=== PATIENT | female | born 1965 | race Hispanic/Latino ===

== ENCOUNTER 2022-08-19 16:39 | Inpatient (IN) | payer BC, OTHER ==
[~2022-08-19] VITALS: Ht 165.1 cm; Wt 101.0 kg
[~2022-08-19 16:39] MED LIST: EMPA1TAB3 PO; IBUP1TAB76 PO; MV,I66.7 PO
[2022-08-19 18:27] LABS: BASOPHILS % (AUTO) 0.2 % (0.0-5.0); EOSINOPHILS % (AUTO) 0.2 % (0.0-8.0); HEMATOCRIT 38.8 % (36-48); LYMPHOCYTES % (AUTO) 10.7 % (21.0-51.0); MEAN CORPUSCULAR HEMOGLOBIN 29.6 pg (27.0-33.0); MEAN CORPUSCULAR VOLUME 92.6 fL (79-99); MONOCYTES % (AUTO) 4.6 % (3.0-13.0); NEUTROPHILS % (AUTO) 83.8 % (40.0-77.0); PLATELET COUNT (AUTO) 253 K/uL (130-400); RED BLOOD CELL COUNT(AUTO) 4.19 MIL/uL (4.00-5.50); RED CELL DISTRIBUTION WIDTH 12.7 % (11.0-15.5); WHITE BLOOD COUNT (AUTO) 12.7 K/uL (4.8-10.8)
[2022-08-19 18:45] LABS: CREATININE 1.2 mg/dL (0.5-1.5); POTASSIUM 4.9 mmol/L (3.5-5.1)
[2022-08-19 18:56] LABS: ALBUMIN 3.5 g/dL (3.5-5.0); TOTAL PROTEIN, SERUM 8.4 g/dL (6.0-8.3)
[2022-08-19] MEDS ORDERED: CLINDAMYCIN IVPB 600MG/50ML 50 ML IV STA (19:07)
[2022-08-19] MEDS ORDERED: HYDROCODONE/ACETAMINOPHEN 5/325 MG TAB PO PRN ×2 (20:30)
[2022-08-19] MEDS ORDERED: GLUCAGON 1MG KIT 1 MG ML IM PRN (20:30)
[2022-08-19] MEDS ORDERED: ONDANSETRON 4MG INJ IV PRN (20:30)
[2022-08-19] MEDS ORDERED: DEXTROSE 50%-WATER 50 ML DISP.SYRIN IV PRN (20:30)
[2022-08-19] MEDS ORDERED: NITROGLYCERIN 0.4 MG SL TAB SL PRN (20:30)
[2022-08-19] MEDS ORDERED: ACETAMINOPHEN 325 MG TAB PO PRN ×2 (20:30)
[2022-08-19] MEDS ORDERED: VANCOMYCIN PROTOCOL PER PHARMACY IV PRN (20:30)
[2022-08-19] MEDS: INSULIN HUMULIN R 100 UNIT/ML 3ML SQ SCH (20:54)
[2022-08-19 20:56] LABS: INR 0.93 (0.85-1.15); PROTHROMBIN TIME 9.8 SEC (9.6-11.6)
[2022-08-19 20:57] LABS: PARTIAL THROMBOPLASTIN TIME 26.2 SEC (26.3-35.5)
[2022-08-19] MEDS: FAMOTIDINE 20MG TAB PO SCH (20:57)
[2022-08-19 21:20] VITALS: BP 151/77
[2022-08-19] MEDS ORDERED: PRED-904 PO (21:32)
[2022-08-19] MEDS ORDERED: ATOR20TA65 PO (21:32)
[2022-08-19] MEDS ORDERED: LORA10TA7 PO (21:32)
[2022-08-19] MEDS ORDERED: SEMA1PEN3 SQ (21:32)
[2022-08-19] MEDS ORDERED: AMIT25TA9 PO (21:32)
[2022-08-19] MEDS: VANCOMYCIN 1.75 GM/250 ML BAG 250 ML IV SCH (21:34)
[2022-08-19 22:14] LABS: APPEARANCE,URINE CLEAR (CLEAR); BILIRUBIN,URINE NEGATIVE (NEGATIVE); COLOR,URINE LIGHT-YELLOW (YELLOW); GLUCOSE, URINE (UA) >=1000 mg/dL (NEGATIVE); KETONES,URINE 10 mg/dL (NEGATIVE); LEUKOCYTE ESTERASE ,URINE NEGATIVE Leu/uL (NEGATIVE); NITRATE,URINE NEGATIVE (NEGATIVE); OCCULT BLOOD,URINE NEGATIVE (NEGATIVE); PH,URINE 5.5 (5.0-8.0); PROTEIN,URINE NEGATIVE (NEGATIVE); SQUAMOUS EPITHELIAL CELL,UR RARE /HPF (0-2); UROBILINOGEN,URINE 0.2 mg/dL (0.2-1.0)
[2022-08-19 23:44] VITALS: BP 114/67
[2022-08-20] MEDS: ZOSYN 3.375GM+NS 50ML 50 ML IVPB SCH ×4 (00:27→22:42)
[2022-08-20 04:32] VITALS: BP 122/73
[2022-08-20] MEDS: INSULIN HUMULIN R 100 UNIT/ML 3ML SQ SCH ×4 (06:21→20:46)
[2022-08-20 06:42] LABS: BASOPHILS % (AUTO) 0.5 % (0.0-5.0); EOSINOPHILS % (AUTO) 1.6 % (0.0-8.0); HEMATOCRIT 37.5 % (36-48); LYMPHOCYTES % (AUTO) 22.6 % (21.0-51.0); MEAN CORPUSCULAR HEMOGLOBIN 29.7 pg (27.0-33.0); MEAN CORPUSCULAR HGB CONC 32.3 g/dL (32.0-36.0); MEAN CORPUSCULAR VOLUME 91.9 fL (79-99); MONOCYTES % (AUTO) 7.7 % (3.0-13.0); NEUTROPHILS % (AUTO) 67.1 % (40.0-77.0); PLATELET COUNT (AUTO) 263 K/uL (130-400); RED BLOOD CELL COUNT(AUTO) 4.08 MIL/uL (4.00-5.50); RED CELL DISTRIBUTION WIDTH 12.7 % (11.0-15.5); WHITE BLOOD COUNT (AUTO) 9.9 K/uL (4.8-10.8)
[2022-08-20 06:55] LABS: ALBUMIN 3.1 g/dL (3.5-5.0); CREATININE 1.1 mg/dL (0.5-1.5); MAGNESIUM 1.9 mg/dL (1.80-2.40); POTASSIUM 4.1 mmol/L (3.5-5.1); TOTAL PROTEIN, SERUM 7.5 g/dL (6.0-8.3)
[2022-08-20 08:00] VITALS: BP 125/71
[2022-08-20] MEDS: ENOXAPARIN SODIUM 40 MG/0.4 ML SYRINGE SQ SCH (08:35)
[2022-08-20] MEDS ORDERED: PIOG15TA66 PO (08:46)
[2022-08-20] MEDS ORDERED: PANT40TA54 PO (08:46)
[2022-08-20] MEDS ORDERED: LOSA25TA41 PO (08:46)
[2022-08-20] MEDS ORDERED: CANA300T PO (08:46)
[2022-08-20] MEDS ORDERED: VITA1CAP17 PO (08:46)
[2022-08-20] MEDS ORDERED: CHOL-34 PO (08:46)
[2022-08-20 12:00] VITALS: BP 117/60
[2022-08-20 16:00] VITALS: BP 126/79
[2022-08-20 19:00] VITALS: BP 104/65
[2022-08-20] MEDS: VANCOMYCIN 1.75 GM/250 ML BAG 250 ML IV SCH (20:45)
[2022-08-20] MEDS: FAMOTIDINE 20MG TAB PO SCH (20:45)
[2022-08-20] MEDS ORDERED: DIPH,PERTUSS(ACELL),TET VAC/PF 0.5 ML VIAL IM ONE (21:00)
[2022-08-20 22:45] VITALS: BP 120/95
[2022-08-21] VITALS (21 sets, daily range): BP systolic 96–138; BP diastolic 55–75
[2022-08-21 04:56] LABS: BASOPHILS % (AUTO) 0.6 % (0.0-5.0); EOSINOPHILS % (AUTO) 1.9 % (0.0-8.0); HEMATOCRIT 37.2 % (36-48); LYMPHOCYTES % (AUTO) 23.8 % (21.0-51.0); MEAN CORPUSCULAR HEMOGLOBIN 29.6 pg (27.0-33.0); MEAN CORPUSCULAR HGB CONC 31.7 g/dL (32.0-36.0); MEAN CORPUSCULAR VOLUME 93.2 fL (79-99); MONOCYTES % (AUTO) 8.2 % (3.0-13.0); NEUTROPHILS % (AUTO) 65.1 % (40.0-77.0); PLATELET COUNT (AUTO) 255 K/uL (130-400); RED BLOOD CELL COUNT(AUTO) 3.99 MIL/uL (4.00-5.50); RED CELL DISTRIBUTION WIDTH 12.6 % (11.0-15.5); WHITE BLOOD COUNT (AUTO) 10.4 K/uL (4.8-10.8)
[2022-08-21 05:21] LABS: MAGNESIUM 1.9 mg/dL (1.80-2.40); POTASSIUM 4.3 mmol/L (3.5-5.1); TOTAL PROTEIN, SERUM 7.5 g/dL (6.0-8.3)
[2022-08-21] MEDS: ZOSYN 3.375GM+NS 50ML 50 ML IVPB SCH ×3 (05:31→22:59)
[2022-08-21] MEDS: INSULIN HUMULIN R 100 UNIT/ML 3ML SQ SCH ×4 (06:19→20:18)
[2022-08-21] MEDS: ENOXAPARIN SODIUM 40 MG/0.4 ML SYRINGE SQ SCH (08:35)
[2022-08-21 13:43] LABS: INR 0.93 (0.85-1.15); PROTHROMBIN TIME 10.3 SEC (9.6-11.6)
[2022-08-21 13:44] LABS: PARTIAL THROMBOPLASTIN TIME 27.4 SEC (26.3-35.5)
[2022-08-21] MEDS ORDERED: BUPIVACAINE/PF 0.25% 30ML VIAL IJ ONE ×2 (14:49→15:04)
[2022-08-21] MEDS ORDERED: LIDOCAINE HCL 1% 20 ML VIAL ONE (14:49)
[2022-08-21] MEDS ORDERED: PROPOFOL 1000 MG/100 ML 100 ML IV ONE (14:57)
[2022-08-21] MEDS ORDERED: MIDAZOLAM HCL 1 MG/ML 2ML VIAL ONE (15:03)
[2022-08-21] MEDS ORDERED: LIDOCAINE HCL 1% 20 ML VIAL INJ ONE (15:04)
[2022-08-21] MEDS ORDERED: PHENYLEPHRINE HCL 10 MG/ML 1ML VIAL IV ONE (15:18)
[2022-08-21] MEDS: VANCOMYCIN 1.75 GM/250 ML BAG 250 ML IV SCH (20:33)
[2022-08-21] MEDS: ATORVASTATIN 20 MG TABLET PO SCH (20:33)
[2022-08-21] MEDS: FAMOTIDINE 20MG TAB PO SCH (20:33)
[2022-08-21] MEDS ORDERED: DIPHENHYDRAMINE HCL 25 MG CAPSULE PO ONE (21:00)
[2022-08-21] MEDS ORDERED: PREDNISONE 20 MG TABLET PO ONE (21:00)
[2022-08-22] VITALS (13 sets, daily range): BP systolic 110–139; BP diastolic 49–75
[2022-08-22] MEDS ORDERED: DiphenhydrAMINE HCL 50 MG/ML VIAL IV ONE
[2022-08-22] MEDS ORDERED: SOLU-MEDROL 125MG VIAL IVP ONE
[2022-08-22] MEDS: ZOSYN 3.375GM+NS 50ML 50 ML IVPB SCH ×3 (06:23→21:01)
[2022-08-22] MEDS: VANCOMYCIN 1G/250ML KIT 250 ML IV SCH ×2 (06:23→18:58)
[2022-08-22 06:28] LABS: BASOPHILS % (AUTO) 0.2 % (0.0-5.0); HEMATOCRIT 38.9 % (36-48); LYMPHOCYTES % (AUTO) 6.3 % (21.0-51.0); MEAN CORPUSCULAR HEMOGLOBIN 29.4 pg (27.0-33.0); MEAN CORPUSCULAR HGB CONC 31.6 g/dL (32.0-36.0); MEAN CORPUSCULAR VOLUME 92.8 fL (79-99); MONOCYTES % (AUTO) 0.7 % (3.0-13.0); NEUTROPHILS % (AUTO) 92.3 % (40.0-77.0); PLATELET COUNT (AUTO) 270 K/uL (130-400); RED BLOOD CELL COUNT(AUTO) 4.19 MIL/uL (4.00-5.50); RED CELL DISTRIBUTION WIDTH 12.4 % (11.0-15.5); WHITE BLOOD COUNT (AUTO) 12.1 K/uL (4.8-10.8)
[2022-08-22 06:52] LABS: CREATININE 1.2 mg/dL (0.5-1.5); POTASSIUM 5.2 mmol/L (3.5-5.1); TOTAL PROTEIN, SERUM 7.8 g/dL (6.0-8.3)
[2022-08-22] MEDS: 0.9%NACL 1000ML 1,000 ML IV SCH ×2 (07:00→17:00)
[2022-08-22] MEDS: INSULIN HUMULIN R 100 UNIT/ML 3ML SQ SCH ×4 (07:30→21:51)
[2022-08-22] MEDS: ENOXAPARIN SODIUM 40 MG/0.4 ML SYRINGE SQ SCH (07:58)
[2022-08-22] MEDS ORDERED: MIDAZOLAM HCL 1 MG/ML 2ML VIAL ONE ×2 (11:45→13:31)
[2022-08-22] MEDS ORDERED: FENTANYL CITRATE PF 50 MCG/1 ML 2ML VIAL ONE (11:45)
[2022-08-22] MEDS ORDERED: LIDOCAINE HCL 400MG/20ML VIAL ONE (11:45)
[2022-08-22] MEDS ORDERED: HEPARIN 10,000 UNIT/10ML (1,000 UNIT/ML) VIAL ONE (11:46)
[2022-08-22] MEDS ORDERED: NITROGLYCERIN 50MG VIAL ONE (11:46)
[2022-08-22] MEDS ORDERED: IODIXANOL 320 MG/ML 100 ML VIAL ONE (11:46)
[2022-08-22] MEDS ORDERED: ASPIRIN 325MG EC TAB PO ONE (13:43)
[2022-08-22] MEDS ORDERED: CLOPIDOGREL 300MG TAB ONE (13:43)
[2022-08-22] MEDS ORDERED: 0.9%NACL 1000ML 1,000 ML IV SCH (14:00)
[2022-08-22] MEDS: FAMOTIDINE 20MG TAB PO SCH (21:01)
[2022-08-22] MEDS: ATORVASTATIN 20 MG TABLET PO SCH (21:01)
[2022-08-23] VITALS: BP 121/68
[2022-08-23] MEDS: 0.9%NACL 1000ML 1,000 ML IV SCH (03:00)
[2022-08-23 05:00] VITALS: BP 107/81
[2022-08-23] MEDS: VANCOMYCIN 1G/250ML KIT 250 ML IV SCH (05:52)
[2022-08-23] MEDS: ZOSYN 3.375GM+NS 50ML 50 ML IVPB SCH (05:52)
[2022-08-23 05:53] LABS: BASOPHILS % (AUTO) 0.5 % (0.0-5.0); EOSINOPHILS % (AUTO) 0.3 % (0.0-8.0); HEMATOCRIT 33.9 % (36-48); LYMPHOCYTES % (AUTO) 18.3 % (21.0-51.0); MEAN CORPUSCULAR HEMOGLOBIN 29.9 pg (27.0-33.0); MEAN CORPUSCULAR HGB CONC 31.9 g/dL (32.0-36.0); MEAN CORPUSCULAR VOLUME 93.9 fL (79-99); MONOCYTES % (AUTO) 7.5 % (3.0-13.0); NEUTROPHILS % (AUTO) 72.7 % (40.0-77.0); PLATELET COUNT (AUTO) 242 K/uL (130-400); RED BLOOD CELL COUNT(AUTO) 3.61 MIL/uL (4.00-5.50); RED CELL DISTRIBUTION WIDTH 12.5 % (11.0-15.5); WHITE BLOOD COUNT (AUTO) 9.7 K/uL (4.8-10.8)
[2022-08-23] MEDS: INSULIN HUMULIN R 100 UNIT/ML 3ML SQ SCH ×3 (05:53→16:24)
[2022-08-23 06:17] LABS: ALBUMIN 2.6 g/dL (3.5-5.0); POTASSIUM 4.2 mmol/L (3.5-5.1); TOTAL PROTEIN, SERUM 6.6 g/dL (6.0-8.3)
[2022-08-23 08:00] VITALS: BP 111/61
[2022-08-23] MEDS ORDERED: ASPIRIN 81MG CHEW TAB PO SCH (09:00)
[2022-08-23] MEDS ORDERED: CLOPIDOGREL 75MG TAB PO SCH (09:00)
[2022-08-23] MEDS: ENOXAPARIN SODIUM 40 MG/0.4 ML SYRINGE SQ SCH (09:06)
[2022-08-23 11:58] VITALS: BP 124/67
[2022-08-23 15:56] VITALS: BP 104/64
== END 2022-08-23 17:26 | disposition home or self-care (01) | DRG 253 ==
LOC: EDH 16:39 → EDHIP 16:40 → 3CH 20:47
PROVIDERS: ADMIT Internal Medicine; ATTEND Internal Medicine
PROC: 0Y6R0Z0 Detachment at Right 2nd Toe, Complete, Open Approach (ICD-10-PCS; 2022-08-21)
PROC: 047M3D1 Dilation of Right Popliteal Artery with Intraluminal Device, using Drug-Coated Balloon, Percutaneous Approach (ICD-10-PCS; principal; 2022-08-22)
PROC: B41D1ZZ Fluoroscopy of Aorta and Bilateral Lower Extremity Arteries using Low Osmolar Contrast (ICD-10-PCS; 2022-08-22)
DX: E11.52 Type 2 diabetes mellitus with diabetic peripheral angiopathy with gangrene (principal); L03.115 Cellulitis of right lower limb; M86.8X7 Other osteomyelitis, ankle and foot; Z20.822 Contact with and (suspected) exposure to COVID-19; E11.69 Type 2 diabetes mellitus with other specified complication; E11.65 Type 2 diabetes mellitus with hyperglycemia; E11.42 Type 2 diabetes mellitus with diabetic polyneuropathy; Z68.37 Body mass index [BMI] 37.0-37.9, adult; E66.9 Obesity, unspecified; D50.9 Iron deficiency anemia, unspecified; E11.621 Type 2 diabetes mellitus with foot ulcer; E78.00 Pure hypercholesterolemia, unspecified; I10 Essential (primary) hypertension; Z79.02 Long term (current) use of antithrombotics/antiplatelets; Z79.82 Long term (current) use of aspirin; Z82.3 Family history of stroke; Z83.3 Family history of diabetes mellitus; Z91.041 Radiographic dye allergy status
CPT/HCPCS: 36415; 37226; 37252; 71045; 73630; 73718; 75625; 80053; 80202; 81001; 82948; 83036; 83605; 83735; 84145; 84703; 85025; 85610; 85651; 85730; 86140; 87040; 87070; 87076; 87077; 87186; 87205; 87635; 90715; 93005; 93925; 99156; 99157; C1760; C1769; C1874; C1893; C1894; G0378; J1200; J1644; J1650; J1815; J2250; J2370; J2405; J2543; J2704; J2930; J3010; J3370; J3490; Q0163; Q9967